=== PATIENT | male | born 1950 | race Caucasian/White ===

== ENCOUNTER → 2020-03-30 | Outpatient (CLI) | payer MEDICARE ==
[~2020-03-30] MED LIST: REGADENOSON 0.4 MG/5 ML SYRINGE ONE
== END | disposition home or self-care (01) ==
LOC: CFH 07:45
PROVIDERS: ATTEND Internal Medicine Cardiovascular Disease
DX: I08.0 Rheumatic disorders of both mitral and aortic valves (principal); I11.9 Hypertensive heart disease without heart failure; R00.1 Bradycardia, unspecified; I45.5 Other specified heart block
CPT/HCPCS: 78452; 93306; A9502; J2785

== ENCOUNTER 2020-04-13 08:48 | Observation (INO) | payer MEDICARE ==
[~2020-04-13] VITALS: Ht 170.2 cm; Wt 80.1 kg
[2020-04-13 09:46] LABS: BASOPHILS # (AUTO) 0.02 x10^3/uL (0-0.1); BASOPHILS % (AUTO) 0 % (0-1); EOSINOPHILS # (AUTO) 0.43 x10^3/uL (0-0.4); EOSINOPHILS % (AUTO) 6 % (1-7); LYMPHOCYTES # (AUTO) 1.86 x10^3/uL (1-3.4); LYMPHOCYTES % (AUTO) 27 % (22-44); MD NO; MEAN CORPUSCULAR HEMOGLOBIN 33.3 pg (27.5-34.5); MEAN CORPUSCULAR HGB CONC 33.2 g/dL (33.2-36.2); MEAN PLATELET VOLUME 8.1 fL (7.4-10.4); MONOCYTES # (AUTO) 0.58 x10^3/uL (0.2-0.8); MONOCYTES % (AUTO) 9 % (2-9); NEUTROPHILS # (AUTO) 3.91 x10^3/uL (1.8-6.8); NEUTROPHILS % (AUTO) 58 % (42-75); PLATELET COUNT 182 x10^3/uL (130-400); RED BLOOD COUNT 4.46 x10^6/uL (4.38-5.82); RED CELL DISTRIBUTION WIDTH 13.8 % (9.4-14.8)
[2020-04-13] MEDS ORDERED: POTA10TA PO (09:54)
[2020-04-13] MEDS ORDERED: CLIN300C8 PO (09:54)
[2020-04-13] MEDS ORDERED: LOVA10TA PO (09:54)
[2020-04-13] MEDS ORDERED: ASPI81TA45 PO (09:54)
[2020-04-13] MEDS ORDERED: SILD50TA PO (09:54)
[2020-04-13] MEDS ORDERED: FURO20TA3 PO (09:54)
[2020-04-13 09:56] LABS: ANION GAP 7 mmol/L (5-15); CALCIUM 8.5 mg/dL (8.5-10.1); CHLORIDE 110 mmol/L (98-107); CREATININE 1.34 mg/dL (0.7-1.3)
[2020-04-13] MEDS ORDERED: PLEASE ENTER ALLERGIES MC SCH (10:00)
[2020-04-13] MEDS ORDERED: MIDAZOLAM 1 MG/ML, 5ML ONE (10:40)
[2020-04-13] MEDS ORDERED: LIDOCAINE 1%, 20ML ONE (10:40)
[2020-04-13] MEDS ORDERED: VANCOMYCIN 500 MG ONE (10:40)
[2020-04-13] MEDS ORDERED: FENTANYL PF 100 MCG/2ML ONE (10:40)
[2020-04-13] MEDS ORDERED: VANCOMYCIN PMX 1GM/200ML 200 ML ONE (10:40)
[2020-04-13] MEDS ORDERED: HOLD MEDICATION MC PRN (12:00)
[2020-04-13] MEDS ORDERED: ONDANSETRON 2MG/ML, 2ML IV PRN (12:00)
[2020-04-13] MEDS ORDERED: HYDROcodone/APAP 5/325 TABLET PO PRN (12:00)
[2020-04-13] MEDS ORDERED: ZOLPIDEM 5MG TABLET PO PRN (12:00)
[2020-04-13] MEDS: SODIUM CHLORIDE 0.9% 1,000 ML IV SCH ×2 (12:30→17:41)
[2020-04-13 13:05] VITALS: BP 156/78
[2020-04-13 19:40] VITALS: BP 148/74
[2020-04-13] MEDS: SODIUM CHLORIDE FLUSH 10ML SYR IVF SCH (20:03)
[2020-04-13] MEDS ORDERED: LOVASTATIN 10 MG TABLET PO SCH (21:00)
[2020-04-14 01:16] VITALS: BP 154/72
[2020-04-14 07:04] VITALS: BP 128/74
[2020-04-14] MEDS: SODIUM CHLORIDE FLUSH 10ML SYR IVF SCH (07:45)
[2020-04-14] MEDS ORDERED: CARV6.252 PO (08:57)
[2020-04-14] MEDS ORDERED: ASPIRIN 81 MG TABLET EC PO SCH (09:00)
== END 2020-04-14 10:35 | disposition home or self-care (01) ==
LOC: CACL 08:48 → 5SO 10:16 → CACL 11:53 → DCLOUNGE 04-14 10:26
PROVIDERS: ADMIT Internal Medicine Cardiovascular Disease; ATTEND Internal Medicine Cardiovascular Disease
DX: I44.1 Atrioventricular block, second degree (principal); I44.7 Left bundle-branch block, unspecified; I49.5 Sick sinus syndrome; I11.0 Hypertensive heart disease with heart failure; I50.9 Heart failure, unspecified; E78.5 Hyperlipidemia, unspecified; E11.9 Type 2 diabetes mellitus without complications; Z79.82 Long term (current) use of aspirin; Z79.899 Other long term (current) drug therapy; Z95.4 Presence of other heart-valve replacement; Z88.0 Allergy status to penicillin
CPT/HCPCS: 33208; 36415; 71045; 71046; 80048; 85025; 93005; 99156; 99157; C1779; C1785; C1892; G0378; J2250; J3010; J3370; J3490

== ENCOUNTER → 2020-08-05 | Outpatient (CLI) | payer MEDICARE ==
[~2020-08-05] MED LIST changes: +ASPI81TA45 PO; +CARV6.252 PO; +CLIN300C9 PO; +FURO20TA3 PO; +LOVA10TA PO; +POTA10TA PO; +SILD50TA PO
== END | disposition home or self-care (01) ==
LOC: CFH 08:06
PROVIDERS: ATTEND Internal Medicine Cardiovascular Disease
DX: I21.19 ST elevation (STEMI) myocardial infarction involving other coronary artery of inferior wall (principal); R29.898 Other symptoms and signs involving the musculoskeletal system; I35.0 Nonrheumatic aortic (valve) stenosis; Z95.1 Presence of aortocoronary bypass graft
CPT/HCPCS: 78452; 93017; A9502; J2785